=== PATIENT | female | born 1955 | race Caucasian/White ===

== ENCOUNTER 2023-01-08 09:26 | Outpatient (CLI) | payer MEDICARE | END 2023-01-08 09:27 | disposition home or self-care (01) | LOC: CSHRAD 09:26 | PROVIDERS: ATTEND Neurological Surgery | DX: S22.008A Other fracture of unspecified thoracic vertebra, initial encounter for closed fracture (principal); S22.020A Wedge compression fracture of second thoracic vertebra, initial encounter for closed fracture | CPT/HCPCS: 72070; 72100 ==

== ENCOUNTER 2023-02-05 11:16 | Outpatient (CLI) | payer MEDICARE | END 2023-02-05 11:17 | disposition home or self-care (01) | LOC: CSHRAD 11:16 | PROVIDERS: ATTEND Neurological Surgery | DX: M48.56XD Collapsed vertebra, not elsewhere classified, lumbar region, subsequent encounter for fracture with routine healing (principal); M48.54XD Collapsed vertebra, not elsewhere classified, thoracic region, subsequent encounter for fracture with routine healing | CPT/HCPCS: 72100 ==